=== PATIENT | female | born 1985 | race Hispanic/Latino ===

== ENCOUNTER 2017-08-09 17:08 | Emergency (ER) | payer SELFPAY ==
[~2017-08-09 17:08] MED LIST: ISOVUE-370 76%-LOCM 1 ML ONE
--- NOTE | 2017-08-09 17:39 | RAD ---
PA AND LATERAL CHEST: Date: 08/09/17 INDICATION: History of mid sternal chest pain. COMPARISON: None. FINDINGS: Lungs are clear. Cardiomediastinal silhouette is normal. No definite pneumothorax is evident. No ple ural effusions noted. No acute osseous abnormality is evident. IMPRESSION: No acute cardiopulmonary abnormality. POS: [facility]
[2017-08-09 17:53] LABS: #Eosinphils 0.1 thou/uL (0.0-0.7); #Lymphocytes 2.6 thou/uL (1.20-3.40); #Monocytes 0.5 thou/uL (0.11-0.59); %Basophils 0.3 % (0.0-1.0); %Eosinophils 1.3 % (0.0-10.0); %Lymphocytes 28.1 % (21.0-51.0); %Monocytes 4.9 % (0.0-10.0); Hematocrit 38.9 % (36.0-47.0); Red Blood Cell (RBC) Count 4.87 mill/uL (4.20-5.40); White Blood Cell (WBC) Count 9.2 thou/uL (4.8-10.8)
[2017-08-09 18:16] LABS: ALT (SGPT) 12 U/L (8-55); AST (SGOT) 16 U/L (5-34); Alkaline Phosphatase 74 U/L (40-150); Anion Gap 11 mmol/L (10-20); BUN (Urea Nitrogen) 14 mg/dL (7.0-18.7); Bilirubin, Total 0.2 mg/dL (0.2-1.2); CK (CPK) 85 U/L (29-168); Calc. Creatinine Clearance 0 mL/min (70-130); Calcium 9.3 mg/dL (7.8-10.44); Carbon Dioxide 25 mmol/L (22-29); Chloride 105 mmol/L (98-107); Estimated GFR-MDRD Greater than 90; Globulin 3.3 g/dL (2.4-3.5); Protein, Total 7.6 g/dL (6.0-8.3)
[2017-08-09 18:20] LABS: Troponin I Less than 0.010 ng/mL (< 0.028)
[2017-08-09] MEDS ORDERED: Ketorolac Tromethamine 30 MG/ML VIAL ONE (18:31)
[2017-08-09] MEDS ORDERED: Mag-Al 1200 mg/1200 mg/30 ML UDCUP ONE (18:31)
[2017-08-09] MEDS ORDERED: Lidocaine Viscous Sol 2% 15 ml UD Cup ONE (18:31)
[2017-08-09] MEDS ORDERED: Nitroglycerin 2% Ointment 1 INCH/1 GM Packet ONE (18:31)
--- NOTE | 2017-08-09 20:35 | CT ---
CTA OF THE THORAX UTILIZING IV CONTRAST PE PROTOCOL AND 3D REFORMATTED IMAGING 08/09/17 INDICATION: Chest pain, weakness and dyspnea on exertion. FINDINGS: No central or segmental pulmonary embolus is evident. The lungs are clear. No pleural effusion or pn eumothorax is evident. No enlarged lymph nodes are evident. The visualized upper abdomen is unremark able for acute abnormality. No acute osseous abnormality is evident. IMPRESSION: No central or segmental pulmonary embolus. POS: [facility]
[2017-08-09] MEDS ORDERED: Ondansetron HCl/PF 4 MG/2 ML Vial ONE (20:44)
--- NOTE | 2017-09-29 13:57 | EKG ---
Test Reason : Blood Pressure : / mmHG Vent. Rate : 080 BPM Atrial Rate : 080 BPM P-R Int : 136 ms QRS Dur : 086 ms QT Int : 380 ms P-R-T Axes : 033 012 022 degrees QTc Int : 438 ms Normal sinus rhythm No STEMI S1 Q3 T3 Normal ECG Confirmed by RICHARD BELL DO ([id number]), dictionary editor RIANNA HUSSEIN ([id number]) on 09/29/2017 1:56:38 PM Referred By: Confirmed By:RICHARD BELL DO
== END 2017-08-09 21:03 | disposition home or self-care (01) ==
LOC: ERS 17:08
DX: R07.89 Other chest pain (principal); F32.9 Major depressive disorder, single episode, unspecified
CPT/HCPCS: 36415; 71020; 71275; 80053; 82553; 84484; 84703; 85025; 85379; 93005; 96374; 96375; J1885; J2405

== ENCOUNTER 2019-03-17 22:12 | Emergency (ER) | payer SELFPAY ==
[2019-03-17 23:00] LABS: Bilirubin Negative (Negative); Blood, Urine Large (Negative); Clarity CLEAR (Clear); Glucose, Urine (Dipstick) Negative (Negative); Leukocyte Negative (Negative); Nitrite Negative (Negative); Protein, Urine (Dipstick) Negative (Neg-Trace); Specific Gravity, Urine 1.011 (1.002-1.036); Urobilinogen 0.2 mg/dL (0.2-1.0)
[2019-03-17 23:01] LABS: Bacteria/HPF None Seen HPF (None Seen); Hyaline Casts/LPF 0-3 HYALINE CAST LPF (0-3 Hyaline); Squamous Epithelial None Seen HPF (0-3); WBC/HPF None Seen HPF (0-3)
[2019-03-17 23:11] LABS: #Basophils 0.1 thou/uL (0.0-0.2); #Eosinphils 0.2 thou/uL (0.0-0.7); #Lymphocytes 3.7 thou/uL (1.20-3.40); #Monocytes 0.7 thou/uL (0.11-0.59); #Neutrophils 6.1 thou/uL (1.40-6.50); %Basophils 0.7 % (0.0-1.0); %Eosinophils 1.8 % (0.0-10.0); %Lymphocytes 34.8 % (21.0-51.0); %Monocytes 6.5 % (0.0-10.0); %Neutrophils 56.2 % (42.0-75.0); Hemoglobin 11.1 g/dL (12.0-16.0); Mean Corpuscular HGB CONC 31.6 g/dL (32.0-36.0); Mean Corpuscular Volume 79.2 fL (78.0-98.0); Mean Platelet Volume 9.1 fL (7.4-10.4); Platelet Count 224 thou/uL (130-400); RBC Distribution Width 18.3 % (11.5-14.5); Red Blood Cell (RBC) Count 4.43 mill/uL (4.20-5.40); White Blood Cell (WBC) Count 10.8 thou/uL (4.8-10.8)
[2019-03-17 23:32] LABS: ALT (SGPT) 9 U/L (8-55); AST (SGOT) 13 U/L (5-34); Albumin 3.9 g/dL (3.5-5.0); Alkaline Phosphatase 64 U/L (40-150); Anion Gap 12 mmol/L (10-20); BUN (Urea Nitrogen) 19 mg/dL (7.0-18.7); Bilirubin, Total Less than 0.2 mg/dL (0.2-1.2); Calc. Creatinine Clearance 0 mL/min (70-130); Calcium 9.6 mg/dL (7.8-10.44); Carbon Dioxide 25 mmol/L (22-29); Chloride 108 mmol/L (98-107); Estimated GFR-MDRD 81; Globulin 2.5 g/dL (2.4-3.5); Glucose 109 mg/dL (70-105); Potassium 3.9 mmol/L (3.5-5.1); Protein, Total 6.4 g/dL (6.0-8.3); Sodium 141 mmol/L (136-145)
[2019-03-18] MEDS ORDERED: Ondansetron PF 4 MG/2 ML Vial ONE (00:32)
[2019-03-18] MEDS ORDERED: Morphine 4 MG/ML VIAL ONE (00:32)
[2019-03-18] MEDS ORDERED: Ketorolac Tromethamine 30 MG/ML VIAL ONE (03:02)
--- NOTE | 2019-03-18 08:02 | CT ---
PRELIMINARY REPORT/[facility]/EMERGENCY AFTER HOURS PROCEDURE: EXAM: CT Abdomen and Pelvis Without Contrast EXAM DATE/TIME: 03/18/2019 12:43 AM CLINICAL HISTORY: 33 years old, female; Acute; Patient HX: [id number] presents to ED with C/O abdominal pain and back pain rom t radiates to her legs, onset 2-3 months ago with worsening in the last few days with associated diar dereck in the last few days. PT reports pain with urination. Lmp 03/13/19. Patient took aleve today with no relief. Denies vomiting. TECHNIQUE: Imaging protocol: Axial computed tomography images of the abdomen and pelvis without contrast. Coronal reformatted images were created and reviewed. COMPARISON: No relevant prior studies available. FINDINGS: Lungs: The visualized portions of the lung bases are normal. ABDOMEN: Liver: The liver is within normal limits for this noncontrast study. Gallbladder and bile ducts: The gallbladder is normal. There is no evidence of biliary ductal dilation. Pancreas: The pancreas appears normal. No ductal dilatation. Spleen: The spleen is normal. Adrenals: The adrenal glands are normal. Kidneys and ureters: Normal. No hydronephrosis. Stomach and bowel: The stomach is normal. The duodenum is unremarkable. The colon is normal. Appendix: A normal appendix is identified. PELVIS: Bladder: The bladder is normal. Reproductive: The uterus is normal. ABDOMEN and PELVIS: Intraperitoneal space: Normal. No free air. No significant fluid collection. Bones/joints: No acute fracture. No dislocation. Soft tissues: Unremarkable. Vasculature: Normal. No abdominal aortic aneurysm. Lymph nodes: Normal. No enlarged lymph nodes. IMPRESSION: No acute abdominal pelvic pathology. Thank you for allowing us to participate in the care of your patient. Dictated and Authenticated by: Travis Sanchez MD 03/18/2019 2:03 AM Central Time ([place] & [place]) FINAL REPORT ABDOMEN CT WITHOUT CONTRAST PELVIC CT WITHOUT CONTRAST: HISTORY: Back pain. Abdominal pain. Symptoms are worsening. FINDINGS: ABDOMEN CT: Grossly, no solid organ abnormality. No evidence of obstructive uropathy. Limited evaluation of the alimentary canal. No evidence of bowel obstruction. Normal-caliber appendix. Reproductive organs are grossly unremarkable. Unremarkable urinary bladder. This report is in agreement with the preliminary report by [facility]. No evidence of obstructive uropathy. POS: [facility]
== END 2019-03-18 03:15 | disposition home or self-care (01) ==
LOC: ERS 22:12
DX: M54.9 Dorsalgia, unspecified (principal); F32.9 Major depressive disorder, single episode, unspecified
CPT/HCPCS: 36415; 74176; 80053; 81003; 81015; 85025; 96361; 96374; 96375; J1885; J2270; J2405

== ENCOUNTER 2019-11-13 22:57 | Emergency (ER) | payer SELFPAY ==
[2019-11-13 23:45] LABS: #Basophils 0.1 thou/uL (0.0-0.2); #Eosinphils 0.1 thou/uL (0.0-0.7); #Lymphocytes 4.1 thou/uL (1.20-3.40); #Monocytes 0.7 thou/uL (0.11-0.59); #Neutrophils 6.2 thou/uL (1.40-6.50); %Basophils 0.7 % (0.0-1.0); %Eosinophils 0.8 % (0.0-10.0); %Lymphocytes 36.5 % (21.0-51.0); %Monocytes 6.1 % (0.0-10.0); %Neutrophils 55.9 % (42.0-75.0); Hemoglobin 10.5 g/dL (12.0-16.0); Mean Corpuscular HGB CONC 30.1 g/dL (32.0-36.0); Mean Corpuscular Volume 69.8 fL (78.0-98.0); Mean Platelet Volume 9.8 fL (7.4-10.4); Platelet Count 302 thou/uL (130-400); RBC Distribution Width 15.2 % (11.5-14.5); White Blood Cell (WBC) Count 11.2 thou/uL (4.8-10.8)
[2019-11-14 00:03] LABS: BHCG - Serum Negative (NEGATIVE); Pregs Control Background? CLEAR/WHITE (CLR/WHITE); Pregs Control Bar Appear? YES (CONTROL BAR)
[2019-11-14 00:04] LABS: Acetaminophen Less than 6.0 mcg/mL (10.0-30.0); Alcohol Less than 10 mg/dL (Less than 10); CK (CPK) 46 U/L (29-168); Salicylate Less than 8.0 mg/dL (15.0-30.0)
[2019-11-14 00:05] LABS: Bacteria/HPF None Seen HPF (None Seen); Bilirubin Negative (Negative); Blood, Urine 2+ (Negative); Clarity Clear (Clear); Glucose, Urine (Dipstick) Normal (Negative); Leukocyte Negative Leu/uL (Negative); Nitrite Negative (Negative); Protein, Urine (Dipstick) Negative (Neg-Trace); Squamous Epithelial 0-3 HPF (0-3); Urobilinogen Normal mg/dL (Less than 2); WBC/HPF 0-3 HPF (0-3)
[2019-11-14 00:09] LABS: ALT (SGPT) 11 U/L (8-55); AST (SGOT) 13 U/L (5-34); Albumin 4.3 g/dL (3.5-5.0); Alkaline Phosphatase 84 U/L (40-110); Anion Gap 15 mmol/L (10-20); BUN (Urea Nitrogen) 12 mg/dL (7.0-18.7); Bilirubin, Total 0.2 mg/dL (0.2-1.2); Calc. Creatinine Clearance 0 mL/min (70-130); Calcium 9.1 mg/dL (7.8-10.44); Carbon Dioxide 24 mmol/L (22-29); Chloride 106 mmol/L (98-107); Estimated GFR-MDRD 90; Globulin 2.9 g/dL (2.4-3.5); Glucose 91 mg/dL (70-105); Potassium 3.7 mmol/L (3.5-5.1); Protein, Total 7.2 g/dL (6.0-8.3); Sodium 141 mmol/L (136-145)
[2019-11-14 00:25] LABS: Amphetamine Not Detected (NotDetected); Barbiturates Screen Not Detected (NotDetected); Benzodiazepine Screen Not Detected (NotDetected); Cocaine Metabolite Screen Not Detected (NotDetected); Medtox Control Line Valid? VALID (VALID); Medtox Reader # READER 1; Methadone Not Detected (NotDetected); Methamphetamine Not Detected (NotDetected); Opiate Screen Not Detected (NotDetected); Oxycodone Screen Not Detected (NotDetected); Phencyclidine (PCP) Not Detected (NotDetected); THC/Cannabinoid Screen Not Detected (NotDetected); Tricyclic Screen Not Detected (NotDetected)
[2019-11-14] MEDS ORDERED: Ibuprofen 200 MG TAB ONE ×2 (07:01→07:03)
== END 2019-11-14 19:49 | disposition home or self-care (01) ==
LOC: ERS 22:57
DX: T45.0X1A Poisoning by antiallergic and antiemetic drugs, accidental (unintentional), initial encounter (principal); R68.2 Dry mouth, unspecified; R11.0 Nausea; F41.9 Anxiety disorder, unspecified; F32.9 Major depressive disorder, single episode, unspecified
CPT/HCPCS: 80053; 80306; 80307; 81003; 81015; 82550; 84443; 84703; 85025; 96360; 96361

== ENCOUNTER 2021-07-18 14:53 | Emergency (ER) | payer SELFPAY ==
[2021-07-19 11:06] LABS: SARS-CoV-2 PCR by NAA DETECTED (NotDetected)
== END 2021-07-18 18:45 | disposition home or self-care (01) ==
LOC: ERS 14:53
DX: U07.1 COVID-19 (principal)
CPT/HCPCS: 99283; U0003; U0005

== ENCOUNTER 2021-07-25 19:55 | Emergency (ER) | payer SELFPAY ==
[~2021-07-25 19:55] MED LIST changes: -ISOVUE-370 76%-LOCM 1 ML ONE; +Iopamidol-370 76% 500 ML 1 ML ONE
[2021-07-25 21:32] LABS: BHCG - Serum Negative (NEGATIVE); Pregs Control Background? CLEAR/WHITE (CLR/WHITE); Pregs Control Bar Appear? YES (CONTROL BAR)
[2021-07-25 21:35] LABS: #Eosinphils 0.1 thou/uL (0.0-0.7); #Lymphocytes 3.1 thou/uL (1.20-3.40); #Monocytes 0.7 thou/uL (0.11-0.59); #Neutrophils 7.4 thou/uL (1.40-6.50); %Basophils 0.1 % (0.0-1.0); %Eosinophils 0.6 % (0.0-10.0); %Lymphocytes 27.2 % (21.0-51.0); %Monocytes 6.1 % (0.0-10.0); Hemoglobin 10.7 g/dL (12.0-16.0); Mean Corpuscular Hemoglobin 25.6 pg (27.0-31.0); Mean Corpuscular Volume 75.3 fL (78.0-98.0); Mean Platelet Volume 8.6 fL (7.4-10.4); Platelet Count 301 thou/uL (130-400); Red Blood Cell (RBC) Count 4.16 mill/uL (4.20-5.40); White Blood Cell (WBC) Count 11.2 thou/uL (4.8-10.8)
[2021-07-25 21:47] LABS: ALT (SGPT) 14 U/L (8-55); AST (SGOT) 10 U/L (5-34); Alkaline Phosphatase 75 U/L (40-110); Anion Gap 15 mmol/L (10-20); BUN (Urea Nitrogen) 13 mg/dL (7.0-18.7); Bilirubin, Total 0.2 mg/dL (0.2-1.2); Calc. Creatinine Clearance 0 mL/min (70-130); Calcium 9.3 mg/dL (7.8-10.44); Carbon Dioxide 23 mmol/L (22-29); Chloride 106 mmol/L (98-107); Globulin 2.5 g/dL (2.4-3.5); Glucose 125 mg/dL (70-105); Potassium 3.7 mmol/L (3.5-5.1); Protein, Total 6.5 g/dL (6.0-8.3); Sodium 140 mmol/L (136-145)
== END 2021-07-26 00:21 | disposition home or self-care (01) ==
LOC: ERS 19:55
DX: U07.1 COVID-19 (principal); R79.1 Abnormal coagulation profile; D64.9 Anemia, unspecified; Z79.899 Other long term (current) drug therapy
CPT/HCPCS: 36415; 71045; 71275; 80053; 84484; 84703; 85025; 85379; 93005; Q9967

== ENCOUNTER 2022-04-03 16:06 | Emergency (ER) | payer OTHER, SELFPAY ==
[2022-04-03 16:42] LABS: #Eosinphils 0.1 thou/uL (0.0-0.7); #Lymphocytes 4.2 thou/uL (1.20-3.40); #Monocytes 0.8 thou/uL (0.11-0.59); #Neutrophils 4.9 thou/uL (1.40-6.50); %Basophils 0.4 % (0.0-1.0); %Eosinophils 1.4 % (0.0-10.0); %Lymphocytes 41.5 % (21.0-51.0); %Monocytes 7.8 % (0.0-10.0); %Neutrophils 48.9 % (42.0-75.0); Hemoglobin 11.8 g/dL (12.0-16.0); Mean Corpuscular HGB CONC 30.4 g/dL (32.0-36.0); Mean Corpuscular Hemoglobin 24.2 pg (27.0-31.0); Mean Corpuscular Volume 79.7 fL (78.0-98.0); Mean Platelet Volume 9.8 fL (7.4-10.4); Platelet Count 275 thou/uL (130-400); RBC Distribution Width 20.7 % (11.5-14.5); Red Blood Cell (RBC) Count 4.89 mill/uL (4.20-5.40); White Blood Cell (WBC) Count 10.1 thou/uL (4.8-10.8)
[2022-04-03 16:56] LABS: BHCG - Serum Negative (NEGATIVE); Pregs Control Background? CLEAR/WHITE (CLR/WHITE); Pregs Control Bar Appear? YES (CONTROL BAR)
[2022-04-03] MEDS ORDERED: diphenhydrAMINE 50 MG/ML VIAL ONE (17:03)
[2022-04-03] MEDS ORDERED: Dexamethasone 4 mg/ml Vial ONE ×2 (17:03→17:08)
[2022-04-03] MEDS ORDERED: Ketorolac Tromethamine 30 MG/ML VIAL ONE (17:03)
[2022-04-03] MEDS ORDERED: Metoclopramide HCl 10 MG/2 ML VIAL ONE (17:03)
[2022-04-03 17:06] LABS: ALT (SGPT) 16 U/L (8-55); AST (SGOT) 17 U/L (5-34); Albumin 4.2 g/dL (3.5-5.0); Alkaline Phosphatase 84 U/L (40-110); Anion Gap 15 mmol/L (10-20); BUN (Urea Nitrogen) 11 mg/dL (7.0-18.7); Bilirubin, Total 0.2 mg/dL (0.2-1.2); Calc. Creatinine Clearance 0 mL/min (70-130); Calcium 9.4 mg/dL (7.8-10.44); Carbon Dioxide 21 mmol/L (22-29); Chloride 107 mmol/L (98-107); Globulin 3.1 g/dL (2.4-3.5); Glucose 95 mg/dL (70-105); Lipase 50 U/L (8-78); Potassium 3.7 mmol/L (3.5-5.1); Protein, Total 7.3 g/dL (6.0-8.3); Sodium 139 mmol/L (136-145)
== END 2022-04-03 19:08 | disposition home or self-care (01) ==
LOC: ERS 16:06
DX: R51.9 Headache, unspecified (principal); R07.89 Other chest pain; M32.9 Systemic lupus erythematosus, unspecified; D64.9 Anemia, unspecified; Z79.899 Other long term (current) drug therapy
CPT/HCPCS: 36415; 70450; 71045; 80053; 83690; 84484; 84703; 85025; 85379; 93005; 96365; 96366; 96375; J1100; J1200; J1885; J2765

== ENCOUNTER 2022-11-15 09:53 | Outpatient (CLI) | payer OTHER | END 2022-11-15 09:54 | disposition home or self-care (01) | LOC: BICRAD 09:53 | PROVIDERS: ATTEND Nurse Practitioner Family | DX: R31.0 Gross hematuria (principal) | CPT/HCPCS: 74018 ==

== ENCOUNTER 2022-11-27 08:38 | Outpatient (CLI) | payer OTHER ==
[2022-11-27] MEDS ORDERED: Iopamidol-370 76% 500 ML 1 ML ONE (10:32)
== END 2022-11-27 08:39 | disposition home or self-care (01) ==
LOC: BICCT 08:38 → EDSTATUS 09:00
PROVIDERS: ATTEND Nurse Practitioner Family
DX: R31.0 Gross hematuria (principal); N20.0 Calculus of kidney; K76.0 Fatty (change of) liver, not elsewhere classified
CPT/HCPCS: 74178; Q9967

== ENCOUNTER 2025-09-07 08:21 | Emergency (ER) | payer OTHER ==
[2025-09-07 09:32] LABS: #Basophils 0.04 10x3/uL (0.0-0.2); #Eosinophils 0.16 10x3/uL (0.0-0.7); #Monocytes 0.58 10x3/uL (0.11-0.59); #Neutrophils 5.25 10x3/uL (1.40-6.50); %Basophils 0.5 % (0.0-1.0); %Eosinophils 2.1 % (0.0-10.0); %Lymphocytes 20.9 % (21.0-51.0); %Monocytes 7.6 % (0.0-10.0); %Neutrophils 68.5 % (42.0-75.0); Hematocrit 41.3 % (36.0-47.0); Hemoglobin 12.6 g/dL (12.0-16.0); Mean Corpuscular Hemoglobin 25.2 pg (27.0-31.0); Mean Corpuscular Volume 82.6 fL (78.0-98.0); Platelet Count 262 10x3/uL (130-400); Red Blood Cell (RBC) Count 5.00 mill/uL (4.20-5.40); White Blood Cell (WBC) Count 7.66 10x3/uL (4.8-10.8)
[2025-09-07 09:49] LABS: Pregnancy Test - Urine (BHCG) Negative (Negative); Pregu Control Background? CLEAR/WHITE (CLR/WHITE); Pregu Control Bar Appear? YES (CONTROL BAR)
[2025-09-07 10:00] LABS: Bacteria/HPF None Seen HPF (None Seen); CAUTI Indications for Culture Pelvic or flank pain; Glucose, Urine (Dipstick) Normal (Negative); Leukocyte Negative Leu/uL (Negative); Protein, Urine (Dipstick) 20 mg/dL (Neg-Trace); Specific Gravity, Urine 1.024 (1.002-1.036); WBC/HPF 0-3 HPF (0-3)
[2025-09-07 10:06] LABS: Urine Culture Reflex No No
[2025-09-07 10:11] LABS: ALT (SGPT) 11 U/L (Less than 34); AST (SGOT) 21 U/L (11-34); Albumin 3.5 g/dL (3.1-4.5); Alkaline Phosphatase 75 U/L (40-110); Anion Gap 15 mmol/L (10-20); BUN (Urea Nitrogen) 10 mg/dL (7.0-18.7); Bilirubin, Total 0.2 mg/dL (0.3-1.2); Calc. Creatinine Clearance 0 mL/min (70-130); Calcium 9.0 mg/dL (7.8-10.44); Carbon Dioxide 25 mmol/L (22-29); Chloride 106 mmol/L (98-107); Globulin 3.3 g/dL (2.4-3.5); Glucose 99 mg/dL (70-105); Lipase 25 U/L (8-78); Potassium 4.4 mmol/L (3.5-5.1); Sodium 142 mmol/L (136-145)
[2025-09-07] MEDS ORDERED: Ondansetron PF 4 MG/2 ML Vial ONE (10:52)
== END 2025-09-07 13:54 | disposition home or self-care (01) ==
LOC: ERS 08:21
DX: R10.12 Left upper quadrant pain (principal); R31.9 Hematuria, unspecified
CPT/HCPCS: 74176; 76705; 80053; 81001; 81025; 83690; 85025; 96374; J2405